=== PATIENT | female | born 1965 | race Caucasian/White ===

== ENCOUNTER 2018-01-27 13:11 | Inpatient (IN) | payer MEDICARE ==
[~2018-01-27] VITALS: Ht 167.6 cm; Wt 98.1 kg
[2018-01-27 13:02] VITALS: BP 192/108
[~2018-01-27 13:11] MED LIST: CIPR500T86 PO; TRAM50TA PO
[2018-01-27 13:23] LABS: BASOPHIL # 0.1 10^3/uL (0.0-0.1); BASOPHIL % 0.5 % (0.0-0.2); EOSINOPHIL # 0.4 10^3/uL (0.0-0.2); EOSINOPHIL % 3.9 % (0.0-5.0); HEMOGLOBIN 13.7 g/dL (12.0-15.0); LYMPHOCYTES # 2.4 10^3/uL (1.0-4.8); LYMPHOCYTES % 21.4 % (24.0-44.0); MEAN CELL HGB 29.5 pg (26-34); MEAN CELL HGB CONCENTRATION 33.3 g/dL (33-37); MEAN CORP VOLUME 88.4 fL (78-100); MEAN PLATELET VOLUME 9.7 fL (7.8-11.0); MONOCYTES # 0.5 10^3/uL (0.3-0.8); MONOCYTES % 4.2 % (5.0-12.0); NEUTROPHIL # 7.6 10^3/uL (1.8-7.7); NEUTROPHILS % 68.8 % (41.0-85.0); RED CELL DISTRIBUTION WIDTH 13.8 % (11.5-14.5)
[2018-01-27 13:31] VITALS: BP 149/89
[2018-01-27] MEDS ORDERED: ASPIRIN PO STA ×2 (13:33→13:53)
[2018-01-27] MEDS ORDERED: ATIVAN PO STA (13:33)
[2018-01-27 13:41] LABS: ALANINE AMINOTRANSFERASE(ML) 35 U/L (12-78); ALKALINE PHOSPHATASE 44 U/L (50-136); ASPARTATE AMINO TRANSFERASE 33 U/L (0-35); CALCIUM 8.5 mg/dL (8.4-10.5); CARBON DIOXIDE 23.3 mmol/L (20.0-32); GLUCOSE 143 mg/dL (70-110)
[2018-01-27] MEDS ORDERED: ATIVAN ONE (13:42)
[2018-01-27] MEDS ORDERED: ASPIRIN ONE (13:42)
--- NOTE | 2018-01-27 13:42 | ER.PDOC ---
General Chief Complaint: Chest Pain-Cardiac Nature Stated Complaint: CHEST PAIN Time seen by MD: 13:33 Source: patient Exam Limitations: no limitations History of Present Illness Timing/Duration: 24 hours Severity/Quality: mild Radiation: arms Activities at Onset: activity/exertion Prior CP/Workup: No Prior Chest Pain Modifying Factors: rest Nitro Today/Relief: No Nitro Taken Today Aspirin Today: No Aspirin Today Associated Symptoms: denies symptoms Allergies: Coded Allergies: No Known Allergies (Unverified , 03/21/14) Home Meds Reported Medications Tramadol Hcl (TRAMADOL HCL) 50 Mg Tablet, 1 TAB PO Q6 PRN for PAIN, #90 TAB 05/03/14 Ciprofloxacin Hcl (CIPRO) 500 Mg Tablet, 1 TAB PO BID, #7 TAB 05/03/14 Past Medical History Medical History: hypertension Surgical History: no surgical history LMP (females 10-50): postmenopause Social History Smoking: greater than 1 pack/day Alcohol Use: rarely Drug Use: none Reviewed Nursing Reviewed: Vital Signs, Abn. Noted All Other Systems: Reviewed and Negative Physical Exam General Appearance: No Apparent Distress, WD/WN HEENT: PERRL/EOMI, Normal ENT Inspection, TMs Normal, Pharynx Normal Neck: Non-Tender, Full Range of Motion, Supple, Normal Inspection Respiratory: chest non-tender, lungs clear, normal breath sounds, no respiratory distress, no accessory muscle use Cardiovascular: Normal Peripheral Pulses, Regular Rate, Rhythm, No Edema, No Gallop, No JVD, No Murmur Gastrointestinal: Normal Bowel Sounds, No Organomegaly, No Pulsatile Mass, Non Tender, Soft Extremities: Normal Range of Motion, Non-Tender, Normal Inspection, No Pedal Edema, No Calf Tenderness, Normal Capillary Refill Neurologic/Psychiatric: offal separator II-XII NML as Tested, No Motor/Sensory Deficits, Alert, Normal Mood/Affect, Oriented x 3 Skin: Normal Color, Warm/Dry Lymphatic: No Adenopathy Results/Orders Results/Orders Laboratory Tests Test 01/27/18 13:06 White Blood Count 11.0 10^3/uL (4.5-11.0) Red Blood Count 4.65 10^6/uL (4.00-5.20) Hemoglobin 13.7 g/dL (12.0-15.0) Hematocrit 41.1 % (36.0-46.0) Mean Corpuscular Volume 88.4 fL (78-100) Mean Corpuscular Hemoglobin 29.5 pg (26-34) Mean Corpuscular Hemoglobin Concent 33.3 g/dL (33-37) Red Cell Distribution Width 13.8 % (11.5-14.5) Platelet Count 390 10^3/uL (150-400) Mean Platelet Volume 9.7 fL (7.8-11.0) Neutrophils (%) (Auto) 68.8 % (41.0-85.0) Lymphocytes (%) (Auto) 21.4 % (24.0-44.0) Monocytes (%) (Auto) 4.2 % (5.0-12.0) Neutrophils # (Auto) 7.6 10^3/uL (1.8-7.7) Lymphocytes # (Auto) 2.4 10^3/uL (1.0-4.8) Monocytes # (Auto) 0.5 10^3/uL (0.3-0.8) Absolute Immature Granulocyte (auto 0.13 10^3 u/L (0-2) Eosinophils % 3.9 % (0.0-5.0) Basophils % 0.5 % (0.0-0.2) Basophils # 0.1 10^3/uL (0.0-0.1) Eosinophil Count 0.4 10^3/uL (0.0-0.2) Prothrombin Time 9.7 SEC (9.8-11.9) Prothrombin Time INR (Non-Therap) 1.0 Percent Immature Gran (Cell Imm) 1.20 % (0.00-0.50) EKG/XRAY/CT/US EKG: NSR, no ST T wave changes Consult/PCP Time Consult/PCP Called: 14:00 Consult/PCP: DR LEWIS Course Sepsis Screening Results: Posi: POSITIVE SEPSIS RISK Vitals & review Data Laboratory Tests Test 01/27/18 13:06 White Blood Count 11.0 10^3/uL Red Blood Count 4.65 10^6/uL Hemoglobin 13.7 g/dL Hematocrit 41.1 % Mean Corpuscular Volume 88.4 fL Mean Corpuscular Hemoglobin 29.5 pg Mean Corpuscular Hemoglobin Concent 33.3 g/dL Red Cell Distribution Width 13.8 % Platelet Count 390 10^3/uL Mean Platelet Volume 9.7 fL Neutrophils (%) (Auto) 68.8 % Lymphocytes (%) (Auto) 21.4 % Monocytes (%) (Auto) 4.2 % Neutrophils # (Auto) 7.6 10^3/uL Lymphocytes # (Auto) 2.4 10^3/uL Monocytes # (Auto) 0.5 10^3/uL Absolute Immature Granulocyte (auto 0.13 10^3 u/L Eosinophils % 3.9 % Basophils % 0.5 % Basophils # 0.1 10^3/uL Eosinophil Count 0.4 10^3/uL Prothrombin Time 9.7 SEC Prothrombin Time INR (Non-Therap) 1.0 Percent Immature Gran (Cell Imm) 1.20 % Departure Time of Disposition: 14:00 Disposition: 01 HOME, SELF-CARE Impression: Primary Impression: Chest pain Condition: Stable Referrals: PCP,UNKNOWN (PCP) PRIMARY CARE PROVIDER Duration or Time Spent with Pa: 2 HRS LARRY MCBRIDE MD Jan 27, 2018 13:42
--- NOTE | 2018-01-27 13:50 | NUR ---
DR JOSHUA MCBRIDE ON PHONE WITH DR LEWIS
[2018-01-27 14:10] VITALS: BP 160/86
--- NOTE | 2018-01-27 14:24 | PCM.EKG ---
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
[2018-01-27 14:30] VITALS: BP 158/100
--- NOTE | 2018-01-27 15:00 | NUR ---
ARRIVAL PATIENT ARRIVED ON MED-SURG UNIT AT THIS TIME TO ROOM #340. ASSUMED CARE FOR PATIENT AT THIS TIME.
[2018-01-27] MEDS ORDERED: PEPCID IV STA (18:00)
--- NOTE | 2018-01-27 18:55 | NUR ---
Report Received report from Damian fuentes LVN
[2018-01-27 18:59] VITALS: BP 151/97
[2018-01-27 20:11] VITALS: BP 145/72
[2018-01-27] MEDS: ATIVAN PO PRN (21:24)
[2018-01-27] MEDS: COZAAR PO SCH (21:24)
--- NOTE | 2018-01-27 22:30 | HPH ---
ADMIT DATE: 01/27/2018 CHIEF COMPLAINT: Chest pain. HISTORY OF PRESENT ILLNESS: The patient is a 52-year-old female who has a history of hypertension, which is currently untreated and acid reflux self diagnosed for which she takes pemy-guz-jhfhuxs proton pump inhibitors most of the time. She has gone through a lot of stress recently with her father who last week and just had 3 days ago. She lives in [place] and has been going back and forth, but plans on staying here for at least a period of time. Over the past 3 days, she has had intermittent midsternal chest tightness, some very mild shortness of breath. She has had numbness in her hands. She denies that the pain is pleuritic. She felt that it was overly persistent and so she came to the ER. Her EKG is normal. She has been kept overnight for chest pain workup. She denies any association with fatty meals. PAST MEDICAL HISTORY: Medical as above, also alcoholic pancreatitis 5 years ago. PAST SURGICAL HISTORY: None. ALLERGIES: IV CONTRAST, HYDROCODONE, TRAMADOL. MEDICATIONS: OTC Prevacid. SOCIAL HISTORY: Regular cigarette smoker. Drinks beer socially at least 2-3 times per week. She denies any history of alcohol withdrawal. FAMILY HISTORY: Is positive in her father for CAD. REVIEW OF SYSTEMS: PULMONARY: No asthma. DERMATOLOGIC: Has intermittent eczema without scaling. NEUROLOGIC: Negative for syncope or seizures. A 10-point ROS reviewed and otherwise negative. PHYSICAL EXAMINATION: VITAL SIGNS: Temperature 98.2, heart rate 83, BP 158/100, pulse ox 99% on room air. GENERAL APPEARANCE: Anxious, obese female in [facility]. HEENT: PERRLA, EOMI, sclerae nonicteric, conjunctivae pink, pharynx clear. NECK: Without JVD, thyromegaly, or adenopathy. LUNGS: Clear. CV normal. HEART: S1, S2, soft S4, without significant murmur. CHEST: Nontender. ABDOMEN: Without hepatosplenomegaly or masses, nontender. Bowel sounds normal. EXTREMITIES: Without C, C or E pulses 2/2. NEUROLOGIC: Alert. Cranial nerves intact. Motor 4/5. LABORATORY DATA: WBC 11.0, hemoglobin 13.7, platelet 390. CMP is notable for potassium 3.5, glucose 143, albumin 3.3. EKG normal as stated. IMPRESSION AND PLAN: 1. Atypical chest pain; main obvious concern is that she has partially treated probable chronic acid reflux. She could easily be having esophagitis or esophageal spasm discomfort. Another concern is a lot of driving recently from [facility] to [place], with attendant thromboembolic risk. We will get a D-dimer and if abnormal, will pursue a CTA of the chest. Otherwise, she will have serial cardiac enzymes and a nuclear stress test in the morning. 2. Hypertension, currently untreated, we will start losartan tonight and assess response. 3. History of eczema. 4. Morbid obesity with BMI of 34.7 5. Chronic tobacco use; counseled to quit, needs to be referred to a primary care physician to assist her with possibly pharmacologic intervention. 6. Anxiety, possible that this has to do with mild alcohol withdrawal. In any event, will treat p.r.n. with lorazepam and give her a short-term prescription after discharge. 7. A 45 minutes spent. Carlos Haji MD DR: DILLAN/sudheer JOB# [id number] NETO
[2018-01-28 00:43] VITALS: BP 145/81
[2018-01-28 05:48] VITALS: BP 120/76
[2018-01-28 06:34] LABS: CHOLESTEROL 212 mg/dL (120-240); HDL CHOLESTEROL 42 mg/dL (32-96)
--- NOTE | 2018-01-28 07:16 | NUR ---
Report Report given to Damian Riley LVN
[2018-01-28 08:02] VITALS: BP 120/72
[2018-01-28] MEDS ORDERED: HEPARIN ONE (08:40)
[2018-01-28] MEDS ORDERED: SUBLIMAZE ONE (08:40)
[2018-01-28] MEDS ORDERED: NS 1000ML 1,000 ML ONE ×2 (08:40→09:02)
[2018-01-28] MEDS ORDERED: VERSED ONE ×2 (08:41→10:22)
[2018-01-28] MEDS ORDERED: XYLOCAINE ONE (08:41)
--- NOTE | 2018-01-28 08:41 | PCM.EKG ---
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
[2018-01-28] MEDS ORDERED: BENADRYL ONE (08:49)
[2018-01-28] MEDS ORDERED: PROTONIX PO SCH (09:00)
[2018-01-28] MEDS: COZAAR PO SCH (09:00)
[2018-01-28] MEDS ORDERED: NS 1000ML/KCL 20MEQ 1,000 ML IV SCH (09:00)
[2018-01-28] MEDS: ATIVAN PO PRN (10:00)
--- NOTE | 2018-01-28 10:17 | NUR ---
PATIENT OFF UNIT FOR SURGICAL PROCEDURE AT THIS TIME.
[2018-01-28] MEDS ORDERED: PANT40TA3 PO (11:36)
[2018-01-28] MEDS ORDERED: METO-236 PO (11:36)
[2018-01-28] MEDS ORDERED: LORA-448 PO (11:36)
[2018-01-28] MEDS ORDERED: SUCR1TAB34 PO (11:36)
[2018-01-28] MEDS ORDERED: PRAV20TA PO (11:38)
--- NOTE | 2018-01-28 12:28 | CCRH ---
DATE OF SERVICE: 01/28/2018 HEART CATH REPORT IDENTIFICATION: A 52-year-old female. PRE-CATHETERIZATION DIAGNOSES: Unstable angina, dyslipidemia, hypertension and heavy smoker. POST-CATHETERIZATION DIAGNOSES: Left main is patent, type 3 LAD patent and dominant LAD. Circumflex is a fair size vessel ____. Right coronary artery is a small caliber vessel, fully patent. Normal LV size, LVEDP 12 mm, good wall contractility, 60% ejection fraction. ANESTHESIA: 2% lidocaine. PREOPERATIVE MEDICATIONS: Phenergan 50 mg IV, Valium 2.5 mg p.o., Versed 2 mg IV, fentanyl 25 mcg IV. ANTICOAGULATION: Heparin 2000 units intra-arterially, 2000 units in the flush solution, 1000 units in the dye solution. Dye used was Isovue, total amount 76 mL. CATHETERS: JL4 6-Yakut, JR4 6-Yakut, and 6-Yakut angled pigtail catheter. ARTERIAL TIME: 5 minutes. FLUOROSCOPY TIME: 1.1 minutes. PROCEDURES: Left heart catheterization, bilateral selective coronary arteriography, left ventriculography via right femoral Ciro approach. NARRATION OF PROCEDURE: Under local anesthesia, right femoral artery was punctured percutaneously by arterial needle, guide wire passed in right femoral artery, 6-Yakut Cordis sheath introduced, side port of the sheath used for femoral arterial pressure monitoring. Sheath anchored with suture. Left Ciro catheter introduced over guide wire into ascending aorta left coronary artery cannulated and left coronary angiography performed in HAITIAN and GIRALDO projections with craniocaudal applications to visualize all branches. Left catheter exchanged for right coronary catheter and right coronary angiography performed in HAITIAN and GIRALDO. This catheter exchanged for 6-Yakut pigtail catheter and catheter crossed the aortic valve and left ventricular LVEDP measured and LV gram performed in 30 degrees GIRALDO view with 30 mL Omnipaque dye and panning of descending aorta attempted. Patient tolerated procedure well. No complications of procedure. Angio-Seal deployed for hemostasis. HEMODYNAMICS: LVEDP is 12 mm, LV pressure of 140/12, femoral artery pressure 144/75 with a mean of 95. No gradient across the aorta on pullback of the central catheter. FINAL CONCLUSION: Normal coronary arteries, normal LV function. RECOMMENDATIONS: Risk factor modification, statin, aspirin, ____, beta abraham, RICKY inhibitors and anxiolytics. Laxmiccally Muñoz MD DR: PAVAN/sudheer JOB# [id number]
--- NOTE | 2018-01-28 14:24 | DSH ---
DATE OF DISCHARGE: 01/28/2018 Please see dictated H and P by myself. ADMITTING DIAGNOSES: The patient is a 52-year-old female admitted with the following diagnoses: 1. Chest pain with moderate cardiac risk factors. 2. Gastroesophageal reflux disease. 3. Hypertension, untreated. 4. History of eczema. 5. Obesity with body mass index of 34.7. 6. Chronic tobacco abuse. 7. Situational anxiety. HOSPITAL COURSE: The patient was stable on telemetry. Cardiac enzymes were negative. Because of her compelling history and cardiac risk factors, she underwent cardiac catheterization by Dr. Muñoz. This showed relatively trivial disease. It was felt that she was having GERD or esophageal spasm symptoms most likely as well as anxiety over her father's recent passage. The patient is able to be discharged. She needs to follow up with a local PCP and has been given referrals for same. Her LDL, cholesterol was relatively high at 142, so she is starting treatment for that as well. DISCHARGE MEDICATIONS: Metoprolol succinate 25 mg p.o. daily; Protonix 40 mg b.i.d. x 10 days, then 40 mg daily; Pravachol 20 mg p.o. at bedtime; Carafate 1 g t.i.d. a.c. x 7 days; Ativan 1 mg p.o. b.i.d. p.r.n. anxiety, quantity 20. The patient was seen on the discharge date. Carlos Haji MD DR: DILLAN/sudheer JOB# [id number] CC: Pilo Muñoz MD
--- NOTE | 2018-01-28 15:05 | CNH ---
DATE OF CONSULTATION: 01/28/2018 PRIMARY PHYSICIAN: Hospitalist, Dr. Haji. CHIEF COMPLAINT: Chest heaviness, tightness. 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 She has had these symptoms going on for 6 months. Periodic diaphoresis also noted, history of hypertension and almost [id number] history of smoking. ALLERGIES: IV CONTRAST, HYDROCODONE and TRAMADOL. MEDICATIONS: She has been on tramadol for pain and apparently she has an underlying history of manic depression, was on lithium and not taking at the present time and has been on antihypertensive agents, but she is not taking any blood pressure medicines at the present time. She has a PCP in [place]. At one time, she was told that she had a black lung. I am not sure what that means. SOCIAL HISTORY: Almost [id number]-jour-yeus history of smoking. No history of any ethanol abuse and other history is suggestive she has menorrhagia and she has fibroids and requires hysterectomy and she is a tail end of her menstrual bleeding and she did not have periods for 5 months now. She is at the tail end of this present menstrual bleeding. FAMILY HISTORY: Positive for heart problems. PHYSICAL EXAMINATION: GENERAL: She is alert, awake, oriented. VITAL SIGNS: Height 167 cm, 98 kilograms, BMI 34.9 and her pulse is 77, respiration 18 and 145/80 blood pressure. HEENT: Unremarkable. NECK: No JVD, no carotid bruits. CHEST: Thick chest wall. LUNGS: Poor air entry bilaterally. HEART: Sounds S1, S2 normal. ABDOMEN: Truncal obesity. No organomegaly. Bowel sounds present. EXTREMITIES: Distal pulses fairly well felt. NEUROLOGIC: No focal neuro deficit is documented. LABORATORY DATA: Showed 11,000 white count and 13.7 hemoglobin. Electrolytes were normal, potassium 3.5, BUN and creatinine normal. Cholesterol was 212, LDL was 141, HDL was 42. TSH was normal. Three troponins were negative. IMAGING STUDIES: Repeat EKG was unremarkable. IMPRESSION: History consistent with unstable angina, dyslipidemia, hypertension, heavy smoker, multiple bleeding fibroids may require hysterectomy. RECOMMENDATIONS: At this time, I think it is in the best interest of the patient to get a cardiac catheterization and determine of coronary anatomy and assess for severity of coronary artery disease. Thank you very much for this consultation. Laxmichand MD Toni DR: PAVAN/sudheer JOB# [id number]
[2018-01-28] MEDS ORDERED: NICOTINE 21MG PATCH TD ONE (15:21)
--- NOTE | 2018-01-28 15:45 | NUR ---
DISCHARGE PLAN CM VISITED WITH PATIENT REGARDING DISCHARGE PLAN AND NEEDS. PATIENT LIVES AT HOME ALONE. SHE WAS LIVING WITH HER FATHER BUT HE LAST WEEK. SHE IS VERY ACTIVE AND INDEPENDENT. SHE IS ON DISABILITY DUE TO HER BEING BIPOLAR. SHE DOES NOT USE ANY TYPE OF DME AND IS NOT ON ANY OXYGEN AT HOME. SHE HAS A LOT OF FRIEND/FAMILY SUPPORT BUT SHE HAS BEEN OVERWHELMED WITH GETTING THINGS TOGETHER FOR HER FATHERS AND SHE WAS THERE WHEN HE . PATIENT IS VERY TEARFUL BUT STATES THAT WITH HER FAMILIES SUPPORT SHE WILL BE OK. CM EDUCATED PATIENT ABOUT OUTPATIENT THERAPY SERVICES. PATIENT REFUSES AT THIS TIME STATING SHE ALREADY GOES TO THERAPY AND HAS HER FRIENDS AND FAMILY TO TALK TO WELL. DISCHARGE GOAL IS TO DISCHARGE HOME AND CONTINUE WITH ROUTINE SELF CARE. CM DEPT WILL CONTINUE TO MONITOR DISCHARGE NEEDS.
[2018-01-28 17:20] VITALS: BP 120/72
--- NOTE | 2018-01-28 17:44 | NUR ---
DISCHARGE PATIENT BEING DISCHARGED HOME AT THIS TIME IN STABLE CONDITION. PATIENT STATES THAT SHE HAS PLENTY OF HELP WITH HER CARE AT HOME. RIGHT FEMORAL CATH SITE IS SOFT, FREE OF BRUISING OR DISCOLORATION. DENIES NEEDING ADDITIONAL RESOURCES. EDUCATED PATIENT ON OVER THE COUNTER NICOTINE PATCHES AND TO MEDICATE PAIN WITH ALTERNATING TYLENOL AND ADVIL NEEDED PER DOCTORS ORDERS. PATIENT VOICED UNDERSTANDING. PATIENT WAS ASSISTED VIA WHEELCHAIR TO VEHICLE AND ASSISTED TO WEAR SAFETY BELT. RELINQUISHED CARE FOR PATIENT AT THIS TIME.
[2018-01-29] MEDS ORDERED: NICOTINE 21MG PATCH TD SCH (09:00)
== END 2018-01-28 17:39 | disposition home or self-care (01) | DRG 287 ==
LOC: ER 13:11 → MS 13:56
PROVIDERS: ADMIT Internal Medicine; ATTEND Internal Medicine
PROC: 4A023N7 Measurement of Cardiac Sampling and Pressure, Left Heart, Percutaneous Approach (ICD-10-PCS; principal; 2018-01-28)
PROC: B2111ZZ Fluoroscopy of Multiple Coronary Arteries using Low Osmolar Contrast (ICD-10-PCS; 2018-01-28)
PROC: B2151ZZ Fluoroscopy of Left Heart using Low Osmolar Contrast (ICD-10-PCS; 2018-01-28)
DX: R07.89 Other chest pain (principal); F41.9 Anxiety disorder, unspecified; K22.4 Dyskinesia of esophagus; K21.9 Gastro-esophageal reflux disease without esophagitis; Z68.34 Body mass index [BMI] 34.0-34.9, adult; E66.01 Morbid (severe) obesity due to excess calories; E78.5 Hyperlipidemia, unspecified; F17.210 Nicotine dependence, cigarettes, uncomplicated; D25.9 Leiomyoma of uterus, unspecified; I10 Essential (primary) hypertension; Z88.5 Allergy status to narcotic agent; Z88.8 Allergy status to other drugs, medicaments and biological substances; Z91.041 Radiographic dye allergy status; Z87.2 Personal history of diseases of the skin and subcutaneous tissue; Z82.49 Family history of ischemic heart disease and other diseases of the circulatory system
CPT/HCPCS: 36415; 80053; 80061; 82550; 82553; 84443; 84484; 85025; 85379; 85610; 93005; 93307; 93458; 99152; 99285; C1760; C1894; J1200; J1644; J2250; J3010; J3490; J7030; Q9967

== ENCOUNTER → 2018-04-22 | Outpatient (CLI) | payer MEDICARE, MEDICAID ==
[~2018-04-22] MED LIST changes: +LORA-448 PO; +METO-236 PO; +PANT40TA3 PO; +PRAV20TA PO; +SUCR1TAB34 PO
--- NOTE | 2018-04-22 15:50 | DIREP ---
PROCEDURE:CHEST 2 VIEWS COMPARISON:None. INDICATIONS:CH, COUGH, COPD FINDINGS: LUNGS/PLEURA:No significant pulmonary parenchymal abnormalities. No effusions. VASCULATURE:Normal. Unremarkable pulmonary vasculature. CARDIAC:Normal. No cardiac silhouette abnormality or cardiomegaly. MEDIASTINUM:Normal. No visible mass or adenopathy. BONES:Normal. No fracture or visible bony lesion. OTHER:Negative. CONCLUSION:No acute cardiac or pulmonary disease. Dictated by: Cruz Sage M.D. on 04/22/2018 at 03:48 PM
== END | disposition home or self-care (01) ==
LOC: RAD 14:29
PROVIDERS: ATTEND Specialist
DX: J44.9 Chronic obstructive pulmonary disease, unspecified (principal)
CPT/HCPCS: 71046

== ENCOUNTER 2024-05-03 17:58 | Emergency (ER) | payer MEDICARE, OTHER ==
[~2024-05-03] VITALS: Ht 167.6 cm; Wt 112.0 kg
[~2024-05-03 17:58] MED LIST changes: +AMLO-169 PO; +HYDR12.58 PO; +LOSA100T15 PO; +METO-237 PO; +POTA-129 PO; +SULF1TAB24 PO
[2024-05-03 18:43] VITALS: BP 144/83; PULSE 84; RESP 22; TEMP 98.3; O2SAT 96
[2024-05-03 19:45] VITALS: BP 140/80; PULSE 80; RESP 22; TEMP 98.3; O2SAT 96
[2024-05-03 20:38] LABS: INFLUENZA VIRUS A ANTIGEN NEGATIVE (NEG)
[2024-05-03 20:39] LABS: INFLUENZA VIRUS B ANTIGEN NEGATIVE (NEG)
[2024-05-03 20:56] VITALS: BP 138/76; PULSE 78; RESP 22; TEMP 98.3; O2SAT 96
[2024-05-03] MEDS ORDERED: ONDA-226 PO (21:00)
== END 2024-05-03 21:01 | disposition home or self-care (01) ==
LOC: ER 17:58
DX: B34.9 Viral infection, unspecified (principal); R11.2 Nausea with vomiting, unspecified; E11.9 Type 2 diabetes mellitus without complications; J44.9 Chronic obstructive pulmonary disease, unspecified; M79.7 Fibromyalgia; Z88.5 Allergy status to narcotic agent; Z20.822 Contact with and (suspected) exposure to COVID-19
CPT/HCPCS: 87426; 87804; 99283